=== PATIENT | female | born 1985 | race Caucasian/White ===

== ENCOUNTER → 2021-02-19 | Outpatient (CLI) | payer OTHER ==
--- NOTE | 2021-02-19 15:08 | US ---
LOWER EXTREMITY VENOUS INSUFFICIENCY CLINICAL HISTORY: I87.2 VENOUS INSUFFICIENCY, I73.9 PERIPHERAL VASCU. SIDE PERFORMED: Bilateral 1) Color flow is present and patency is documented in the following vessels. No DVT or SVT is noted . Common Femoral Vein Deep Femoral Vein Femoral Vein Popliteal Vein Proximal Calf Veins Greater Saph Vein Upper Small Saph Vein 2) There is venous reflux noted at the following venous levels: Right GSV, rt prox calf veins. No r eflux seen on left side. IMPRESSION: Reflux noted right GSDV and right proximal calf veins. No evidence for DVT.
== END | disposition home or self-care (01) ==
LOC: RADUSWWP 13:28
PROVIDERS: ATTEND Podiatrist
DX: I87.2 Venous insufficiency (chronic) (peripheral) (principal); E13.42 Other specified diabetes mellitus with diabetic polyneuropathy; L97.512 Non-pressure chronic ulcer of other part of right foot with fat layer exposed; I10 Essential (primary) hypertension; I73.9 Peripheral vascular disease, unspecified
CPT/HCPCS: 36415; 84134; 93922; 93970

== ENCOUNTER → 2021-06-20 | Outpatient (CLI) | payer OTHER ==
[2021-06-20 15:02] LABS: Basophils # (A) 0.03 X 10*3/uL (0.00-0.10); Basophils % (A) 0.4 %; Eosinophils # (A) 0.14 X 10*3/uL (0.04-0.35); Eosinophils % (A) 1.8 %; HCT 44.4 % (37.2-46.3); HGB 14.4 g/dL (12.0-15.0); Lymphocytes # (A) 2.93 X 10*3/uL (0.90-5.00); Lymphocytes % (A) 37.2 %; MCH 32.1 pg (27.0-32.0); MCHC 32.4 g/dL (32.0-37.0); MCV 99.1 fL (80.0-97.0); Mean Platelet Volume 10.5 fL (9.5-12.2); Monocytes % (A) 10.2 %; Neutrophils # (A) 3.96 X 10*3/uL (1.80-7.70); Neutrophils % (A) 50.1 %; Platelet Count 257 X 10*3/uL (140-440); RBC 4.48 X 10*6/uL (4.10-5.20); RDW 12.6 % (11.5-14.5); WBC 7.88 X 10*3/uL (4.50-10.00)
[2021-06-20 18:21] LABS: ALT <5 U/L (8-44); AST 26 U/L (13-35); African American GFR (CKD) 131.6 (60.0-200.0); Albumin 4.2 g/dL (3.8-4.9); Albumin/Globulin Ratio 1.53 (1.60-3.17); Alkaline Phosphatase 80 U/L (41-126); BUN/Creat Ratio 36.71 Ratio (12.00-20.00); Blood Urea Nitrogen 24.3 mg/dL (9.0-27.0); Calcium 9.7 mg/dL (8.7-10.3); Carbon Dioxide 18.2 mmol/L (20.0-27.5); Chloride 90 mmol/L (96-109); Globulin 2.7 g/dL (1.6-3.3); Glucose 365 mg/dL (70-110); Non-African American GFR(CKD) 113.5 (60.0-200.0); Potassium 5.6 mmol/L (3.5-5.5); Prealbumin 25.3 mg/dL (18.0-42.0); Sodium 128 mmol/L (135-145); Total Bilirubin <0.20 mg/dL (0.30-1.20); Total Protein 6.9 g/dL (6.2-8.2)
== END | disposition home or self-care (01) ==
LOC: LABWHC1 10:28
PROVIDERS: ATTEND Podiatrist
DX: L97.512 Non-pressure chronic ulcer of other part of right foot with fat layer exposed (principal); E13.42 Other specified diabetes mellitus with diabetic polyneuropathy; I10 Essential (primary) hypertension; I73.9 Peripheral vascular disease, unspecified; I87.2 Venous insufficiency (chronic) (peripheral)
CPT/HCPCS: 36415; 80053; 83036; 84134; 85025

== ENCOUNTER → 2023-05-13 | Outpatient (CLI) | payer MEDICARE, OTHER ==
[2023-05-13 14:02] VITALS: BP 123/89; PULSE 114; RESP 16; TEMP 97.9; BMI 59.5
--- NOTE | 2023-05-13 16:00 | P.HPBAR ---
Bariatric H&P - History & Physicial H&P Date: 05/13/23 History & Physicial: Visit/CC: Initial Consult Patient initial contact: Initial weight: 140.614 kg Initial weight in pounds: 310.00 Height: 5 ft 0.5 in Initial BMI: 59.5 Last weight: Current weight: 140.614 kg Current weight in pounds: 310.00 Current BMI: 59.5 [place] body weight (based on NIH guidelines): 46.493 kg Excess body weight loss: 0.0% The patient is a 38 year-old F who presents for Bariatric Assessment. Patient here for surgical assessment regarding weight loss. Patient says she was instructed to come here by her wound specialist. She states she actually is not interested and does not feel ready to proceed with bariatric surgery at this point. She states she is unable to give up carbonated beverages and will have difficulty complying with postoperative instructions because of her sleep apnea causing confusion frequent. She states she often forgets to take her medications. Patient does not smoke currently but apparently did smoke in the past. She states she has a head anger. She says she will frequently strike herself in the head with objects or hit her head against the wall. Denies any psychiatric or psychological follow-up currently. Has history of hydrocephalus and has had a shunt in the past. History of previous DVT and PE. History of frequent pancreatitis attacks. Current weight 310, BMI 59.5. Today's heart rate 114. Highest weight 389. Patient states she does not exercise and feels that she could exercise more frequently she would lose the weight. Comorbidities include diabetes, hypertension, hypercholesterolemia, sleep apnea, cardiomegaly, pancreatitis. No abdominal surgeries other than possible DYNAMOMETER TESTER shunt. Review of Systems The patient denies any acute changes in vision or hearing, no dysphagia or odynophagia, no chest pain or shortness of breath, no dysuria or hematuria, no headache, no runny nose, no rectal bleeding or melena, no unexplained weight loss Past Medical History Past Medical History: Diabetes Mellitus, Hyperlipidemia, Sleep Apnea/CPAP/BIPAP History of Any Multi-Drug Resistant Organisms: None Reported Additional Past Surgical History / Comment(s): removal of cervical shunt to treat hydrocephalus Past Anesthesia/Blood Transfusion Reactions: No Reported Reaction Smoking Status: Former smoker Surgical - Exam Vital Signs Temp Pulse Resp BP 97.9 F 114 H 16 123/89 05/13/23 13:45 05/13/23 13:45 05/13/23 13:45 05/13/23 13:45 Physical exam: General: Well-developed, well-nourished HEENT: Normocephalic, sclerae nonicteric Abdomen: Nontender, nondistended Extremities: No edema Neuro: Alert and oriented Bariatric Assessment & Plan (1) Morbid obesity with BMI of 50.0-59.9, adult Narrative/Plan: 38-year-old female with morbid obesity. Patient and I discussed surgical options in detail. She states she is not prepared to proceed with her at this time. I am concerned that the patient would struggle with appropriate pre-and postoperative instructions. Offered for patient to come back to see me in the future if she wants to look into this further and is more committed to the process. Status: Acute Bariatric Checklist Checklist: Plan: Checklist: EGD: 1. Hiatal hernia: 2. H. Pylori: HgbA1c: Vitamin D: Smoking: Primary care physician referral: Tino Psychiatry clearance: Cardiology clearance: Sleep study: Diet journal: VTE risk score: VTE risk level: Rehab needs at discharge:
== END ==
LOC: BARWHC3 13:19
PROVIDERS: ATTEND Surgery
DX: E66.01 Morbid (severe) obesity due to excess calories (principal); E11.9 Type 2 diabetes mellitus without complications; G47.30 Sleep apnea, unspecified; Z87.891 Personal history of nicotine dependence; Z68.43 Body mass index [BMI] 50.0-59.9, adult; Z88.8 Allergy status to other drugs, medicaments and biological substances; Z79.84 Long term (current) use of oral hypoglycemic drugs; Z79.4 Long term (current) use of insulin
CPT/HCPCS: 99202

== ENCOUNTER 2023-10-21 16:24 | Emergency (ER) | payer MEDICARE, OTHER ==
[2023-10-21 17:16] VITALS: TEMP 97.5
[2023-10-21 17:22] LABS: Basophils # (A) 0.1 k/uL (0-0.2); Basophils % (A) 1 %; Eosinophils # (A) 0.1 k/uL (0-0.7); Eosinophils % (A) 1 %; HCT 46.7 % (34.0-46.0); Lymphocytes # (A) 2.3 k/uL (1.0-4.8); Lymphocytes % (A) 28 %; MCH 30.8 pg (25.0-35.0); MCV 96.1 fL (80.0-100.0); Mean Platelet Volume 7.6; Monocytes # (A) 0.4 k/uL (0-1.0); Monocytes % (A) 5 %; Neutrophils # (A) 5.1 k/uL (1.3-7.7); Neutrophils % (A) 62 %; Platelet Count 265 k/uL (150-450); RBC 4.86 m/uL (3.80-5.40); RDW 13.5 % (11.5-15.5); WBC 8.2 k/uL (3.8-10.6)
[2023-10-21 17:34] LABS: ALT 35 U/L (4-34); AST 36 U/L (14-36); African American GFR (CKD) >90 (>60 ml/min/1.73 sqM); Albumin 4.4 g/dL (3.5-5.0); Alkaline Phosphatase 71 U/L (38-126); Anion Gap 16 mmol/L; Blood Urea Nitrogen 24 mg/dL (7-17); Calcium 10.1 mg/dL (8.4-10.2); Carbon Dioxide 17 mmol/L (22-30); Chloride 102 mmol/L (98-107); Glucose 330 mg/dL (74-99); Non-African American GFR(CKD) >90 (>60 ml/min/1.73 sqM); Potassium 5.3 mmol/L (3.5-5.1); Sodium 135 mmol/L (137-145); Total Bilirubin 0.6 mg/dL (0.2-1.3); Total Protein 7.4 g/dL (6.3-8.2)
[2023-10-21] MEDS: SODIUM CHLORIDE 0.9% 1,000 ML IV ONE ×2 (18:28→18:30)
[2023-10-21] MEDS: INSULIN REGULAR 100 UNIT/ML VIAL (IV) SQ STA (18:29)
[2023-10-21] MEDS: CLINDAMYCIN 600 MG in DEXTROSE 5% IN WATER 50 ML IVPB STA (19:05)
--- NOTE | 2023-10-21 20:04 | ED ---
Skin/Abscess/FB HPI - General Chief complaint: Skin/Abscess/Foreign Body Stated complaint: Infection on neck Time Seen by Provider: 10/21/23 16:32 Source: patient Mode of arrival: ambulatory Limitations: no limitations - History of Present Illness Initial comments: This patient is a 38-year-old woman who presents to have evaluation of what she believes is an infection to the posterior aspect of her neck. The patient indicates the area below the hairline. She states that she was able to drain some foul-smelling material. The patient denies having systemic symptoms, no fever or chills. No chest pain, palpitations, dyspnea. MD complaint: abscess/boil -: hour(s) Tetanus Up to Date: yes Location: neck Severity: moderate Quality: aching Consistency: constant Improves with: none Worsens with: none Associated symptoms: denies other symptoms - Related Data Home Medications Medication Instructions Recorded Confirmed Ergocalciferol (Vitamin D2) 1,250 mcg PO SUFR 10/21/23 10/21/23 [Drisdol (50,000 Iu)] Insulin Regular, Human [humuLIN R 90 unit SQ AC-TID 10/21/23 10/21/23 U-500 Kwikpen] metFORMIN HCL ER [Glucophage XR] 500 mg PO BID 10/21/23 10/21/23 Previous Rx's Medication Instructions Recorded Clindamycin [Cleocin] 300 mg PO Q6H #56 capsule 10/21/23 Allergies Allergy/AdvReac Type Severity Reaction Status Date / Time aloe Allergy Swelling Verified 10/21/23 17:38 diphenhydramine Allergy Rash/Hives Verified 10/21/23 17:38 [From Benadryl] Review of Systems ROS Statement: Those systems with pertinent positive or pertinent negative responses have been documented in the HPI. ROS Other: All systems not noted in ROS Statement are negative. Constitutional: Denies: fever, chills, weakness Respiratory: Denies: cough, dyspnea Cardiovascular: Denies: chest pain, palpitations, edema, syncope Gastrointestinal: Denies: abdominal pain, vomiting, diarrhea Genitourinary: Denies: dysuria, hematuria Musculoskeletal: Denies: back pain Skin: Denies: rash Neurological: Denies: headache, weakness, numbness Past Medical History Past Medical History: Diabetes Mellitus, Hyperlipidemia, Sleep Apnea/CPAP/BIPAP History of Any Multi-Drug Resistant Organisms: None Reported Additional Past Surgical History / Comment(s): removal of cervical shunt to treat hydrocephalus Past Anesthesia/Blood Transfusion Reactions: No Reported Reaction Past Psychological History: No Psychological Hx Reported Smoking Status: Former smoker Past Alcohol Use History: None Reported Past Drug Use History: None Reported General Exam Limitations: no limitations General appearance: alert, in no apparent distress Head exam: Present: atraumatic, normocephalic Eye exam: Present: normal appearance. Absent: scleral icterus, conjunctival injection ENT exam: Present: mucous membranes dry Neck exam: Present: normal inspection, tenderness, full ROM, other (Posterior aspect of the neck has approximately 3 x 5 cm area with some fluctuance, warmth, redness consistent with abscess. There does appear to be recent draining tract). Absent: meningismus, lymphadenopathy, thyromegaly Respiratory exam: Present: normal lung sounds bilaterally. Absent: respiratory distress, wheezes, rales, rhonchi, stridor Cardiovascular Exam: Present: regular rate, tachycardia, normal heart sounds. Absent: systolic murmur, diastolic murmur, rubs, gallop GI/Abdominal exam: Present: soft. Absent: distended, tenderness, guarding, rebound, rigid, mass Extremities exam: Present: normal inspection, normal capillary refill. Absent: pedal edema, calf tenderness Back exam: Present: normal inspection. Absent: CVA tenderness (R), CVA tenderness (L) Neurological exam: Present: alert Skin exam: Present: warm, dry, intact, normal color. Absent: rash Course Vital Signs 10/21/23 10/21/23 16:25 20:23 Temperature 97.5 F L Pulse Rate 111 H 101 H Respiratory 22 14 Rate Blood Pressure 103/69 150/82 O2 Sat by Pulse 96 97 Oximetry Medical Decision Making - Medical Decision Making Patient is a 38-year-old woman with history of diabetes who presents with draining abscess posterior aspect of the neck. The patient found to have hyperglycemia. She does appear to to be slightly dry on the exam. Given these findings patient had fluid bolus and insulin. She had antibiotics. We discussed further management at this point patient wants to try course of antibiotics and close follow-up. We discussed the return parameters as well as appropriate further care and follow-up. Patient warned about the effects of infection on blood sugar and she will monitor this, returning if any difficulty Was pt. sent in by a medical professional or institution (ABDOULAYE Gonzalez, [employer], urgent care, hospital, or prison...) When possible be specific @ -[No] Did you speak to anyone other than the patient for history (EMS, parent, family, police, friend...)? What history was obtained from this source @ -[No] Did you review nursing and triage notes (agree or disagree)? Why? @ -[I reviewed and agree with nursing and triage notes] Were old charts reviewed (outside hosp., previous admission, EMS record, old EKG, old radiological studies, urgent care reports/EKG's, prison records)? Report findings @ -[No old charts were reviewed] Differential Diagnosis (chest pain, altered mental status, abdominal pain women, abdominal pain men, vaginal bleeding, weakness, fever, dyspnea, syncope, headache, dizziness, GI bleed, back pain, seizure, CVA, palpatations, mental health, musculoskeletal)? @ -[The differential includes cellulitis, abscess, infected sebaceous cyst, amongst other conditions EKG interpreted by me (3pts min.). @ -[As above] X-rays interpreted by me (1pt min.). @ -[None done] CT interpreted by me (1pt min.). @ -[None done] U/S interpreted by me (1pt. min.). @ -[None done] What testing was considered but not performed or refused? (CT, X-rays, U/S, labs)? Why? @ -[None] What meds were considered but not given or refused? Why? @ -[None] Did you discuss the management of the patient with other professionals (professionals i.e. ABDOULAYE Gonzalez, [employer], lab, RT, psych nurse, social work supervisor, exercise physiology professor, teacher, chief security and safety officer, case operator)? Give summary @ -[No] Was smoking cessation discussed for >3mins.? @ -[No] Was critical care preformed (if so, how long)? @ -[No] Were there social determinants of health that impacted care today? How? (Homelessness, low income, unemployed, alcoholism, drug addiction, transportation, low edu. Level, literacy, decrease access to med. care, skilled nursing, rehab)? @ -[No] Was there de-escalation of care discussed even if they declined (Discuss DNR or withdrawal of care, Hospice)? DNR status @ -[No] What co-morbidities impacted this encounter? (DM, HTN, Smoking, COPD, CAD, Cancer, CVA, ARF, Chemo, Hep., AIDS, mental health diagnosis, sleep apnea, morbid obesity)? @ -[Diabetes Was patient admitted / discharged? Hospital course, mention meds given and route, prescriptions, significant lab abnormalities, going to OR and other pertinent info. @ -[As above Undiagnosed new problem with uncertain prognosis? @ -[No] Drug Therapy requiring intensive monitoring for toxicity (Heparin, Nitro, Insulin, Cardizem)? @ -[No] Were any procedures done? @ -[No] Diagnosis/symptom? @ -[Hyperglycemia Abscess Acute, or Chronic, or Acute on Chronic? @ -[Acute Uncomplicated (without systemic symptoms) or Complicated (systemic symptoms)? @ -[Complicated by hyperglycemia Side effects of treatment? @ -[No] Exacerbation, Progression, or Severe Exacerbation? @ -[No] Poses a threat to life or bodily function? How? (Chest pain, USA, NM, pneumonia, PE, COPD, DKA, ARF, appy, cholecystitis, CVA, Diverticulitis, Homicidal, Suicidal, threat to staff... and all critical care pts) @ -[No - Lab Data Result diagrams: 10/21/23 17:09 10/21/23 17:09 Lab Results 10/21/23 10/21/23 10/21/23 Range/Units 17:09 17:09 17:09 WBC 8.2 (3.8-10.6) k/uL RBC 4.86 (3.80-5.40) m/uL Hgb 15.0 (11.4-16.0) gm/dL Hct 46.7 H (34.0-46.0) % MCV 96.1 (80.0-100.0) fL MCH 30.8 (25.0-35.0) pg MCHC 32.0 (31.0-37.0) g/dL RDW 13.5 (11.5-15.5) % Plt Count 265 (150-450) k/uL MPV 7.6 Neutrophils % 62 % Lymphocytes % 28 % Monocytes % 5 % Eosinophils % 1 % Basophils % 1 % Neutrophils # 5.1 (1.3-7.7) k/uL Lymphocytes # 2.3 (1.0-4.8) k/uL Monocytes # 0.4 (0-1.0) k/uL Eosinophils # 0.1 (0-0.7) k/uL Basophils # 0.1 (0-0.2) k/uL Sodium 135 L (137-145) mmol/L Potassium 5.3 H (3.5-5.1) mmol/L Chloride 102 (98-107) mmol/L Carbon Dioxide 17 L (22-30) mmol/L Anion Gap 16 mmol/L BUN 24 H (7-17) mg/dL Creatinine 0.65 (0.52-1.04) mg/dL Est GFR (CKD-EPI)AfAm >90 (>60 ml/min/1.73 sqM) Est GFR (CKD-EPI)NonAf >90 (>60 ml/min/1.73 sqM) Glucose 330 H (74-99) mg/dL Lactic Ac Sepsis Rflx Plasma Lactic Acid Sherwin 4.3 H* (0.7-2.0) mmol/L Calcium 10.1 (8.4-10.2) mg/dL Total Bilirubin 0.6 (0.2-1.3) mg/dL AST 36 (14-36) U/L ALT 35 H (4-34) U/L Alkaline Phosphatase 71 (38-126) U/L Total Protein 7.4 (6.3-8.2) g/dL Albumin 4.4 (3.5-5.0) g/dL 10/21/23 10/21/23 10/21/23 Range/Units 18:05 20:18 20:56 WBC (3.8-10.6) k/uL RBC (3.80-5.40) m/uL Hgb (11.4-16.0) gm/dL Hct (34.0-46.0) % MCV (80.0-100.0) fL MCH (25.0-35.0) pg MCHC (31.0-37.0) g/dL RDW (11.5-15.5) % Plt Count (150-450) k/uL MPV Neutrophils % % Lymphocytes % % Monocytes % % Eosinophils % % Basophils % % Neutrophils # (1.3-7.7) k/uL Lymphocytes # (1.0-4.8) k/uL Monocytes # (0-1.0) k/uL Eosinophils # (0-0.7) k/uL Basophils # (0-0.2) k/uL Sodium (137-145) mmol/L Potassium (3.5-5.1) mmol/L Chloride (98-107) mmol/L Carbon Dioxide (22-30) mmol/L Anion Gap mmol/L BUN (7-17) mg/dL Creatinine (0.52-1.04) mg/dL Est GFR (CKD-EPI)AfAm (>60 ml/min/1.73 sqM) Est GFR (CKD-EPI)NonAf (>60 ml/min/1.73 sqM) Glucose (74-99) mg/dL Lactic Ac Sepsis Rflx Y Y Plasma Lactic Acid Sherwin 4.3 H* (0.7-2.0) mmol/L Calcium (8.4-10.2) mg/dL Total Bilirubin (0.2-1.3) mg/dL AST (14-36) U/L ALT (4-34) U/L Alkaline Phosphatase (38-126) U/L Total Protein (6.3-8.2) g/dL Albumin (3.5-5.0) g/dL Disposition Clinical Impression: Hyperglycemia due to type 2 diabetes mellitus, Abscess Disposition: HOME SELF-CARE Condition: Good Prescriptions: Clindamycin [Cleocin] 300 mg PO Q6H #56 capsule Is patient prescribed a controlled substance at d/c from ED?: No Referrals: Terese Jiménez FNPBC [Primary Care Provider] - 1-2 days Mainor Keenan MD [STAFF PHYSICIAN] - 1-2 days
[2023-10-21 20:31] VITALS: BP 150/82; PULSE 101; RESP 14
== END 2023-10-21 20:25 | disposition home or self-care (01) ==
LOC: EC 16:24
DX: E11.65 Type 2 diabetes mellitus with hyperglycemia (principal); L02.11 Cutaneous abscess of neck; Z87.891 Personal history of nicotine dependence; Z88.8 Allergy status to other drugs, medicaments and biological substances; Z88.1 Allergy status to other antibiotic agents
CPT/HCPCS: 36415; 80053; 83605; 85025; 99282; 96365; 96361; J0736